=== PATIENT | male | born 1965 | race Caucasian/White ===

== ENCOUNTER 2025-02-04 23:59 | Inpatient (IN) | payer BC, SELFPAY ==
[2025-02-04] VITALS (9 sets, daily range): BP systolic 152–202; BP diastolic 94–141; BMI 29.1
--- NOTE | 2025-02-04 20:54 | ED.GENMED ---
History of Present Illness
<Donnie Merritt PA-C - Last Filed: 02/04/25 23:45>
General
Chief Complaint: Blood Pressure Problem
Source: patient and spouse
Time Seen by Provider: 02/04/25 20:34
History of Present Illness
History of Present Illness:
59-year-old male with no significant past medical history presents to the emergency department for evaluation after check his blood pressure at home earlier today and found it to be persistently elevated with systolics greater than 180 with multiple
readings over 200. When asked why patient was checking his blood pressure he states that he vomited this morning, has been feeling very sluggish, anxious and tremulous. Patient does note that he drinks at least 2-3 drinks per night, last drink was
2 days ago, no known history of alcohol withdrawal. He denies any known history of hypertension. Denies any chest pain, shortness of breath, abdominal pain, urinary symptoms or bowel changes. Denies any concomitant substance use. No fevers or
recent illnesses.
Past History
<Donnie Merritt PA-C - Last Filed: 02/04/25 23:45>
Past History
ED Past Medical History: None
ED Past Surgical History: Orthopedic
Social History
Tobacco: Non-smoker
Alcohol: Daily
Drug: None
Personal:
Living: with family
Employment: Employed
Review of Systems
<Donnie Merritt PA-C - Last Filed: 02/04/25 23:45>
Review of Systems
All Other Systems: ROS reviewed and negative except as documented in HPI and ROS
Phy Exam
<Donnie Merritt PA-C - Last Filed: 02/04/25 23:45>
Physical Exam
Physical Exam:
GENERAL: Alert , very anxious in appearance, fidgeting, tremulous which worsens with arms extended
HEAD: Normocephalic atraumatic
EYE: pupils equal and reactive, pupils 3 mm bilateral, EOMI
NECK: Supple
ENT: o/p clr, mildly dry mucous membranes
CARDIAC: Tachycardic rate and rhythm, no murmur
LUNGS: Clear breath sounds bilaterally, no acute respiratory distress, no wheezes/rales/rhonchi
ABDOMEN: Soft, without focal tenderness, no r/g, no cvat
NEUROLOGICAL: Alert and oriented x 3
SKIN: Warm and dry, skin intact.
MUSCULOSKELETAL: No edema, well perfused.
PSYCH: Normal and appropriate interaction.
Scores
<Donnie Merritt PA-C - Last Filed: 02/04/25 23:45>
Heart Failure Risk
Heart Failure Risk Score: Not Applicable
Heart Score for Chest Pain Patients
STEMI patient?: Not applicable
Withdrawal Assessment of Alcohol
Withdrawal Assessment Completed?: Yes
Nausea and Vomiting: Intermittent nausea with dry heaves
Tactile Disturbances: Mild itching, pins and needles, burning or numbness
Tremor: Moderate, with patient's arms extended
Auditory Disturbances: Not present
Paroxysmal Sweats: Beads of sweat obvious on forehead
Visual Disturbances: Not present
Anxiety: Moderately anxious, or guarded, so anxiety is inferred
Headache, Fullness in Head: Mild
Agitation: Moderately fidgety and restless
Orientation and clouding of sensorium: Oriented and can do serial additions
Total CIWA Score: 24
Alcohol Withdrawal Medication Recommendation: Equal to MSAS >11. Lorazepam 2-4mg IV NOW and re-assess q1hr
<Kain Gordon MD - Last Filed: 02/04/25 22:40>
Withdrawal Assessment of Alcohol
Total CIWA Score: 24
Alcohol Withdrawal Medication Recommendation: Equal to MSAS >11. Lorazepam 2-4mg IV NOW and re-assess q1hr
Course
<Donnie Merritt PA-C - Last Filed: 02/04/25 23:45>
Orders/Labs/Results
Orders:
Orders
02/04/25 20:22
Electrocardiogram (*1) Urgent
Reason for Study: Chest Pain
EKG- Treatment ONCE
02/04/25 20:53
0.9% Sodium Chloride 1000 ml [Nss] 1,000 ml IV BOLUS
Lorazepam [Ativan] 2 mg IV NOW STA
02/04/25 21:11
Alcohol Urgent
Complete Blood Count/With Diff Urgent
Comprehensive Metabolic Panel Urgent
Magnesium Urgent
Troponin I Urgent
02/04/25 21:57
0.9% Sodium Chloride 1000 ml [Nss] 1,000 ml IV BOLUS
02/04/25 23:00
FOLic ACID [Folvite] 1 mg 0.9% Sodium Chloride 50 ml [Nss] 50 ml IV Q24H
02/04/25 23:19
Urinalysis Reflex To Culture Urgent
Date Specimen was Collected: 02/04/25
Time Specimen was Collected: 23:17
02/05/25 00:00
Thiamine Injection 500 mg 0.9% Sodium Chloride 250 ml [Nss] 250 ml IV Q8
Abnormal Lab Results
02/04/25
21:11
MCV 98.1 H fL
(80.0-94.0)
MCH 34.4 H pg
(27.0-31.0)
RDW 15.4 H %
(11.5-14.5)
Plt Count 87 L 10^3/uL
(130-400)
MPV 10.6 H fL
(7.4-10.4)
Abs Immat Gran (auto) 0.1 H 10^3/uL
(0-0.05)
Absolute Neuts (auto) 6.6 H 10^3/uL
(1.4-6.5)
Absolute Lymphs (auto) 0.9 L 10^3/uL
(1.2-3.4)
Absolute Monos (auto) 0.8 H 10^3/uL
(0.1-0.6)
Immature Gran % 0.6 H %
(0-0.5)
Neutrophils % 77.9 H %
(42.2-75.2)
Lymphocytes % 11.1 L %
(20.5-51.1)
Monocytes % 9.8 H %
(1.7-9.3)
Chloride 97 L mmol/L
(98-107)
Carbon Dioxide 9 L* mmol/L
(22-30)
Glucose 189 H mg/dl
(70-99)
Total Bilirubin 2.7 H mg/dl
(0.2-1.3)
AST 139 H U/L
(17-59)
ALT 100 H U/L
(0-50)
Total Protein 8.4 H g/dl
(6.3-8.2)
Albumin 5.2 H g/dl
(3.5-5.0)
02/04/25 21:11
02/04/25 21:11
Vital Signs
Initial and Last Documented VS:
Initial Vital Signs
Temp Pulse Resp BP Pulse Ox
98.3 F 124 20 200/141 99
02/04/25 20:23 02/04/25 20:23 02/04/25 20:23 02/04/25 20:23 02/04/25 20:23
Last Documented Vital Signs
Temp Pulse Resp BP Pulse Ox
98.3 F 113 20 152/100 96
02/04/25 20:23 02/04/25 22:45 02/04/25 22:45 02/04/25 22:30 02/04/25 20:45
Labor Contractor consulted with Physician
Labor Contractor consulted with physician?: Yes
Name of Physician Consulted: Heidi
<Kain Gordon MD - Last Filed: 02/04/25 22:40>
Orders/Labs/Results
Orders:
Orders
02/04/25 20:22
Electrocardiogram (*1) Urgent
Reason for Study: Chest Pain
EKG- Treatment ONCE
02/04/25 20:53
0.9% Sodium Chloride 1000 ml [Nss] 1,000 ml IV BOLUS
Lorazepam [Ativan] 2 mg IV NOW STA
02/04/25 21:11
Alcohol Urgent
Complete Blood Count/With Diff Urgent
Comprehensive Metabolic Panel Urgent
Magnesium Urgent
Troponin I Urgent
02/04/25 21:57
0.9% Sodium Chloride 1000 ml [Nss] 1,000 ml IV BOLUS
02/04/25 23:00
FOLic ACID [Folvite] 1 mg 0.9% Sodium Chloride 50 ml [Nss] 50 ml IV Q24H
02/04/25 23:19
Urinalysis Reflex To Culture Urgent
Date Specimen was Collected: 02/04/25
Time Specimen was Collected: 23:17
02/05/25 00:00
Thiamine Injection 500 mg 0.9% Sodium Chloride 250 ml [Nss] 250 ml IV Q8
Abnormal Lab Results
02/04/25
21:11
MCV 98.1 H fL
(80.0-94.0)
MCH 34.4 H pg
(27.0-31.0)
RDW 15.4 H %
(11.5-14.5)
Plt Count 87 L 10^3/uL
(130-400)
MPV 10.6 H fL
(7.4-10.4)
Abs Immat Gran (auto) 0.1 H 10^3/uL
(0-0.05)
Absolute Neuts (auto) 6.6 H 10^3/uL
(1.4-6.5)
Absolute Lymphs (auto) 0.9 L 10^3/uL
(1.2-3.4)
Absolute Monos (auto) 0.8 H 10^3/uL
(0.1-0.6)
Immature Gran % 0.6 H %
(0-0.5)
Neutrophils % 77.9 H %
(42.2-75.2)
Lymphocytes % 11.1 L %
(20.5-51.1)
Monocytes % 9.8 H %
(1.7-9.3)
Chloride 97 L mmol/L
(98-107)
Carbon Dioxide 9 L* mmol/L
(22-30)
Glucose 189 H mg/dl
(70-99)
Total Bilirubin 2.7 H mg/dl
(0.2-1.3)
AST 139 H U/L
(17-59)
ALT 100 H U/L
(0-50)
Total Protein 8.4 H g/dl
(6.3-8.2)
Albumin 5.2 H g/dl
(3.5-5.0)
02/04/25 21:11
02/04/25 21:11
Vital Signs
Initial and Last Documented VS:
Initial Vital Signs
Temp Pulse Resp BP Pulse Ox
98.3 F 124 20 200/141 99
02/04/25 20:23 02/04/25 20:23 02/04/25 20:23 02/04/25 20:23 02/04/25 20:23
Last Documented Vital Signs
Temp Pulse Resp BP Pulse Ox
98.3 F 113 20 152/100 96
02/04/25 20:23 02/04/25 22:45 02/04/25 22:45 02/04/25 22:30 02/04/25 20:45
<Donnie Merritt PA-C - Last Filed: 02/04/25 23:45>
MDM/Problems Addressed
Differential Diagnosis Includes:
Acute alcohol withdrawal, hypertensive urgency/emergency, less concern for an acute infectious etiology
MDM/Problems Addressed:
59-year-old male presenting to the emergency department for evaluation after finding his blood pressure to be significantly elevated at home, had been feeling unwell for approximately 12 hours. Patient arrives to the ER here significantly
hypertensive, tachycardic, tremulous. Patient's MSAS score is well above 11. Considerable concern for acute alcohol withdrawal. Also considering hypertensive urgency/emergency. Will obtain labs including alcohol level. 2 mg of Ativan ordered
as well as IV fluids. Planning for admission.
Chronic conditions affecting care: Psychiatric illness (Daily alcohol use)
<MARINE Huang Last Filed: 02/04/25 23:45>
*Pulse Oximetry
Patient hypoxic: no
*EKG
Heart Rate: 114
Rate: tachycardiac
Rhythm: sinus
Ischemia: no ischemia
*Play Back Operator Interpretation
Rate: tachycardiac
Rhythm: sinus
*Critical Care Note
Total Time (30-74mins, 75-104mins- exclusive of procedures): 30
comment:
Critical care statement: A total of 30 minutes of critical care time was provided for this patient. This includes management of unstable vital signs, evaluation of the patient at bedside, reviewing the patient's pertinent medical records, discussion
with consultants, review of old EKGs and review of pertinent medical records. This time with separate from time utilized to perform the aforementioned documented procedures
<MARINE Huang Last Filed: 02/04/25 23:45>
Patient Management
Discussion with other providers: Hospitalist
Escalation/DeEscalation of care consider admission/obs:
Patient's labs noted for a bicarb of 9. Suspect alcoholic ketoacidosis. Liver function tests elevated which likely correlates with alcohol history. Patient states his last drink was 2 days ago but alcohol level remains above 0 which could signify
patient drinking more than what he is initially bleeding on. Blood pressure improved following Ativan. Remains tachycardic. Will plan for admission for continued close monitoring of acute alcohol withdrawal. Hospitalist team aware.
ED Attending Note
<Donnie Merritt PA-C - Last Filed: 02/04/25 23:45>
-
Portions of this chart may have been created with voice recognition software.� Occasional wrong word or��sound alike� substitutions may have occurred due to the inherent limitations of voice recognition software.
<Kain Gordon MD - Last Filed: 02/04/25 22:40>
ED Attending Note
Patient seen and examined by attending physician: Yes
ED Attending Note:
I have seen and evaluated the patient with a [id number] encounter. I have spoken to the advance practicer provider and involved in the medical history, the physical exam, medical decision making.
Evaluation and management service: agree unless noted differently below.
Results interpretation: agree unless noted differently below.
Focused HPI: 59-year-old male with history as noted presents to the ER for evaluation of hypertension, tremors, nausea in setting of recent discontinuation of alcohol. Patient says that he drinks about 5 or 6 days a week usually about 2 or 3 drinks
per evening. He has been drinking this much for well over a year. He says that 2 days ago he stopped drinking and yesterday started with tremors, nausea, vomiting. He has a headache. He feels weak and shaky. He says that he checked his blood
pressure today and it was extremely high. Came to the ER for assessment. Denies any drug use.
Physical exam: Hypertensive, tachycardic. Resting tremor. Skin moist. Regular rhythm on cardiac auscultation. Lungs clear. Abdomen soft. Somewhat dry mucous membranes.
Medical Decision Makin-year-old male presents with alcohol withdrawal after stopping alcohol use 2 days ago. His labs did show metabolic acidosis suspect alcoholic ketoacidosis. Treat with Ativan, thiamine, folate, fluids. Admit to
hospitalist for continued management.
Discharge Plan
Departure
Patient Disposition: Admit
Date of Disposition: 02/04/25
Time of Disposition: 21:59
Presentation/result/management discussed w/ accepting MD/DO: Hospitalist
Discharge Problem:
Alcohol withdrawal
Interventions
Interventions:
*Risk Screen - Suicide Last Done: 02/04/25 20:23
*Neglect/Abuse Screening Last Done: 02/04/25 20:23
*ED- Fall Risk Assessment Last Done: 02/04/25 20:23
*ED COVID-19 Vaccine History Last Done: 02/04/25 21:08
ED- Cardiac Assessment Last Done: 02/04/25 21:08
ED- Neurological Assessment Last Done: 02/04/25 21:08
ED- Pulmonary Assessment Last Done: 02/04/25 21:08
Discharge Date and Time
Print Language: HUNGARIAN
[2025-02-04] MEDS: ATIVAN 2 MG IV (21:04)
[2025-02-04] MEDS: NSS 1000 IV (21:05)
[2025-02-04 21:26] LABS: Hematocrit 46.2 % (39.0-52.0); Hemoglobin 16.2 g/dL (13.0-18.0); Mean Corp Hgb Conc. 35.1 g/dL (33.0-37.0); Mean Corpuscular Hgb 34.4 pg (27.0-31.0); Mean Corpuscular Volume 98.1 fL (80.0-94.0); Red Blood Cell Count 4.71 10^6/uL (4.70-6.10); Red Cell Dist. Width 15.4 % (11.5-14.5); White Blood Cell Count 8.5 10^3/uL (4.8-10.8)
[2025-02-04 21:27] LABS: % Basophils 0.5 % (0-2); % Eosinophils 0.1 % (0-6); % Immature Granulocytes 0.6 % (0-0.5); % Lymphocytes 11.1 % (20.5-51.1); % Monocytes 9.8 % (1.7-9.3); % Neutrophils 77.9 % (42.2-75.2); Absolute Immature Granulocytes 0.1 10^3/uL (0-0.05); Absolute Lymphocytes 0.9 10^3/uL (1.2-3.4); Absolute Monocytes 0.8 10^3/uL (0.1-0.6); Absolute Neutrophils 6.6 10^3/uL (1.4-6.5); Nucleated Red Blood Cells % 0 % (-)
[2025-02-04 21:40] LABS: Mean Platelet Volume 10.6 fL (7.4-10.4); Platelet Count 87 10^3/uL (130-400)
[2025-02-04 21:49] LABS: ALT (SGPT) 100 U/L (0-50); AST (SGOT) 139 U/L (17-59); Albumin 5.2 g/dl (3.5-5.0); Alcohol 17 mg/dl; Alkaline Phosphatase 84 U/L (38-126); Blood Urea Nitrogen 13 mg/dl (9-20); Calcium 9.4 mg/dl (8.4-10.2); Carbon Dioxide 9 mmol/L (22-30); Chloride 97 mmol/L (98-107); Estimated Creatinine Clearance 85 ml/min; Glucose 189 mg/dl (70-99); Magnesium 1.6 mg/dl (1.6-2.3); Potassium 4.9 mmol/L (3.5-5.1); Sodium 135 mmol/L (135-145); Total Bilirubin 2.7 mg/dl (0.2-1.3); Total Protein 8.4 g/dl (6.3-8.2); eGFR > 60.00
[2025-02-04 21:56] LABS: Troponin I < 0.012 ng/ml
[2025-02-04 23:40] LABS: Urine Albumin 3+ (Neg - Trace); Urine Bilirubin Negative (Negative); Urine Character Clear (Clear); Urine Color Amber; Urine Glucose Negative (Negative); Urine Ketone 3+ (Negative); Urine Leukocyte Negative (Negative); Urine Nitrite Negative (Negative); Urine Occult Blood 4+ (Negative); Urine Specific Gravity 1.025 (<1.030); Urine Urobilinogen Negative (Neg - 1+)
[2025-02-05] VITALS (13 sets, daily range): BP systolic 136–182; BP diastolic 80–122; BMI 28.6
[2025-02-05] MEDS: FOLVITE 50.2 MG IV (00:03)
--- NOTE | 2025-02-05 00:03 | HPS.HSE ---
Family Physician
-
Family Physician: * NONE
Chief Complaint
-
N/V, Tremulous, high BP
History of Present Illness
Patient is a 59y M with no significant PMH who presents to ED complaining of palpitations, hypertension and feeling 'jittery'. Patient states that he has been feeling poorly for the past few days. Today he checked his BP at home and it was
200/140. Patient states that he stopped drinking alcohol 2 days ago. Prior to that he drank 2-5 drinks five days per week on average. He has no prior history of alcohol withdrawal syndromes, etc.
No other recent symptoms of cough, fever, etc.
He has had N/V of non-bloody emesis a few times in the past 2 days. No abdominal pain. Mild headache.
His symptoms have progressed over the past 2 days - prompting him to present to the ED for further evaluation.
Patient has pain in the L ankle (remote injury / surgery) that has become progressively worse over the past year +.
He has been much less active and his alcohol intake has increased in that time period.
notes that he has been sleeping a great deal and generally not feeling well.
Medical History
Past Medical History
Past Medical History: Reports Other
Additional Past Medical History:
DJD
Past Surgical History: Reports Other
Additional Past Surgical History:
Left Ankle Surgery
L Patella Tendon Repair
Social History
Tobacco: Non-smoker
Alcohol: Daily
Drug: None
Personal:
Living: With Family
Family History
Family History: Other (Father: HTN, A-Fib Mother: HTN Sister: HTN)
Allergies / Home Medications
Allergies reflects when Allergies were last updated in [facility].
Home Medications with original date entered in [facility]
Allergy/Medication List:
Allergies
Allergy/AdvReac Type Severity Reaction Status Date / Time
No Known Allergies Allergy Unverified 02/04/25 20:21
Home Medications
glucosamine sulf dipot chlr,msm,chond 550 mg-C 30 mg-faith 1 mg capsule (Glucosamine Chondroitin) 1 cap PO DAILY 02/04/25
Review of Systems
-
History Source: Patient
A 12 point ROS was completed and negative except as noted: Yes
Constitutional: Reports Fatigue; Denies Fever or Chills
EENT: Denies Sore Throat or Runny Nose
Respiratory: Denies Cough or Trouble Breathing
Cardiac: Reports Palpitations; Denies Chest Pain
Abdomen/GI: Reports Nausea, Vomiting and Diarrhea; Denies Abdominal Pain, Bloody Stools or Black Stools
: Denies Dysuria or Frequency
Musculoskeletal: Reports Joint Pain (L ankle pain); Denies Edema
Neurological: Reports Headache; Denies Dizzy
Physical Exam
Vital Signs
Vital Signs
Temp Pulse Resp BP Pulse Ox
98.3 F 113 20 152/100 96
02/04/25 20:23 02/04/25 22:45 02/04/25 22:45 02/04/25 22:30 02/04/25 20:45
Physical Exam
General: Other (59y M flushed appearance and somewhat tremulous.)
HEENT: Other (Dry MM. Neck supple.)
Respiratory: Clear; No Wheezes, Rales or Rhonchi
Cardiac: S1/S2 and Tachycardia; No Murmur
GI: Soft, Non Tender, Non Distended and Normal Bowel Sounds
Musculoskeletal: No Clubbing, No Cyanosis and No Edema
Neuro: AO x 3
Laboratory Results
-
02/04/25 21:11
02/04/25 21:11
Laboratory Results
Total Bilirubin 2.7 mg/dl (0.2-1.3) H 02/04/25 21:11
AST 139 U/L (17-59) H 02/04/25 21:11
ALT 100 U/L (0-50) H 02/04/25 21:11
Alkaline Phosphatase 84 U/L (38-126) 02/04/25 21:11
Troponin I < 0.012 ng/ml 02/04/25 21:11
Impression/Plan
-
A/P: Patient is a 59y M with no significant PMH who presents to ED complaining of hypertension and palpitations.
Acute Alcohol Withdrawal
Anion Gap Metabolic Acidosis secondary to the above
- Admit to IMU for further evaluation and treatment.
- Begin phenobarbital protocol given severity of symptoms.
- EtOH = 17 reportedly 2 days after last alcohol intake.
- Seizure precautions.
- Thiamine / folate / MVI replacement.
- IVF support.
- Supportive care with antiemetics, PRN BZDs, etc.
- Follow electrolytes and replace as needed.
- Follow for improvement in acidosis.
Abnormal LFTs
Thrombocytopenia
- Secondary to alcohol use disorder as noted above.
- Check PT / PTT.
- Abdominal US to evaluate liver morphology.
DJD
- Left ankle pain progressive over the past several years - now fairly severe.
- History of dislocation in youth requiring surgery at that time.
- Pain control.
- Follow-up with Ortho as an outpatient.
DVT Prophylaxis: SCDs
Code Status: Full
[2025-02-05 00:16] LABS: Urine Squamous Cell >30 /LPF (Few)
[2025-02-05] MEDS: THIAMINE INJECTION 255 MG IV ×2 (00:36→12:11)
[2025-02-05] MEDS: NSS 1000 IV (00:37)
[2025-02-05 00:45] LABS: Urine Amorphous Seen; Urine Bacteria Many (Negative); Urine Mucus Many; Urine White Cell Cast 0-2 /LPF
[2025-02-05 00:48] LABS: Urine Red Blood Cell 21-25 /HPF (0-2)
[2025-02-05 06:29] LABS: PT 14.6 Sec (11.4-14.6)
[2025-02-05 06:34] LABS: Hematocrit 39.6 % (39.0-52.0); Hemoglobin 13.7 g/dL (13.0-18.0); Mean Corp Hgb Conc. 34.6 g/dL (33.0-37.0); Mean Corpuscular Hgb 34.1 pg (27.0-31.0); Mean Corpuscular Volume 98.5 fL (80.0-94.0); Mean Platelet Volume 11.5 fL (7.4-10.4); Platelet Count 63 10^3/uL (130-400); Red Blood Cell Count 4.02 10^6/uL (4.70-6.10); Red Cell Dist. Width 15.4 % (11.5-14.5); White Blood Cell Count 7.7 10^3/uL (4.8-10.8)
[2025-02-05 06:58] LABS: ALT (SGPT) 74 U/L (0-50); AST (SGOT) 91 U/L (17-59); Albumin 3.9 g/dl (3.5-5.0); Alkaline Phosphatase 64 U/L (38-126); Blood Urea Nitrogen 11 mg/dl (9-20); Calcium 8.6 mg/dl (8.4-10.2); Carbon Dioxide 14 mmol/L (22-30); Chloride 103 mmol/L (98-107); Direct Bilirubin 0.7 mg/dl (0.0-0.4); Estimated Creatinine Clearance 121 ml/min; Glucose 124 mg/dl (70-99); Magnesium 1.6 mg/dl (1.6-2.3); Phosphorus 1.4 mg/dl (2.5-4.5); Potassium 3.9 mmol/L (3.5-5.1); Sodium 132 mmol/L (135-145); Total Bilirubin 2.9 mg/dl (0.2-1.3); Total Protein 6.5 g/dl (6.3-8.2); eGFR > 60.00
[2025-02-05] MEDS: LR 1000 IV ×2 (08:41→14:21)
[2025-02-05] MEDS: PROTONIX IV 40 MG IV (08:42)
[2025-02-05] MEDS: FLUSH (NSS) 1 FLUSH IV ×2 (08:42→08:44)
[2025-02-05] MEDS: THIAMINE INJECTION 200 MG IV ×2 (08:43→18:29)
[2025-02-05] MEDS: NSS (PRESERVATIVE FREE) 10 ML IV (08:44)
[2025-02-05] MEDS: FOLVITE 1 MG PO (08:45)
[2025-02-05] MEDS: SODIUM BICARBONATE 1300 MG PO ×3 (09:11→20:53)
[2025-02-05] MEDS: MAGNESIUM SULFATE 100 IV (09:11)
[2025-02-05] MEDS: NEUTRA-PHOS POWDER PACKET 250 MG PO ×4 (09:11→20:53)
--- NOTE | 2025-02-05 13:54 | W.PN.UPDATE ---
Update Note
Progress Note Update
Seen and examined independent of pulmonary physician. Nonbillable note.
States of mild tremors. Denies any nausea or vomiting. Denies any hallucination. Auditory or visual. Spouse at bedside and agrees.
General: Watching TV, mild tremors
HEENT: Other (Dry MM. Neck supple.)
Respiratory: Clear; No Wheezes, Rales or Rhonchi
Cardiac: S1/S2 and Tachycardia; No Murmur
GI: Soft, Non Tender, Non Distended and Normal Bowel Sounds
Musculoskeletal: No Clubbing, No Cyanosis and No Edema
Neuro: AO x 3
A/P: Patient is a 59y M with no significant PMH who presents to ED complaining of hypertension and palpitations.
Acute Alcohol Withdrawal
Alcohol abuse
Anion Gap Metabolic Acidosis secondary to the above
- EtOH = 17
- Seizure precautions.
- Thiamine / folate / MVI replacement.
- IVF support.
- Supportive care with antiemetics, PRN BZDs, etc.
- Follow electrolytes and replace as needed.
- Follow for improvement in acidosis.
- Can hold off Phenobarb for now.
- Not interested in going to inpatient detox rehab
Abnormal LFTs
Thrombocytopenia
- Secondary to alcohol use disorder as noted above.
- Check PT / PTT. DF score of 18. [place] alcoholic hepaitis score of 6. NA-MELD 15. Low score on scales indicating not responsive to steroids
- Check hepatitis panel
- Abdominal US Hepatomegaly. Increased heterogeneous hepatic echogenicity which is suspicious for cirrhosis. No abnormal focal hepatic lesion identified sonographically.
- Trend Platelets
Anion Gap Metabolic Acidosis secondary to alcoholic ketoacidosis
-Start p.o. bicarbonate
-IV bicarbonate infusion
Mild hypophosphatemia
-Replete p.o.
-Encourage nutrition
Mild hyponatremia
-trend bmp for now
DJD
- Left ankle pain progressive over the past several years - now fairly severe.
- History of dislocation in youth requiring surgery at that time.
- Pain control.
- Follow-up with Ortho as an outpatient.
DVT Prophylaxis: SCDs
Code Status: Full
Discussed with patient's spouse at bedside in details and answered all her questions to her satisfaction
[2025-02-05] MEDS: SODIUM BICARBONATE 1150 MEQ IV (14:21)
[2025-02-05] MEDS: THIAMINE INJECTION IV ×2 (14:53→19:03)
--- NOTE | 2025-02-05 16:54 | EDRN ---
Patient taken to room 434-1 on monitor with Bicarb drip infusing by blending technician.
[2025-02-05] MEDS: TRANDATE 10 MG IV (17:42)
[2025-02-06] VITALS (8 sets, daily range): BP systolic 140–179; BP diastolic 79–114; PULSE 107; O2SAT 98; BMI 28.6
[2025-02-06] MEDS: THIAMINE INJECTION 200 MG IV ×4 (00:23→23:08)
[2025-02-06] MEDS: TRANDATE 10 MG IV ×3 (05:32→23:33)
[2025-02-06 07:41] LABS: % Basophils 0.8 % (0-2); % Eosinophils 1.3 % (0-6); % Immature Granulocytes 0.8 % (0-0.5); % Lymphocytes 26.8 % (20.5-51.1); % Monocytes 12.6 % (1.7-9.3); % Neutrophils 57.7 % (42.2-75.2); Absolute Eosinophils 0.1 10^3/uL (0-0.7); Absolute Lymphocytes 1.3 10^3/uL (1.2-3.4); Absolute Monocytes 0.6 10^3/uL (0.1-0.6); Absolute Neutrophils 2.8 10^3/uL (1.4-6.5); Hematocrit 38.7 % (39.0-52.0); Mean Corp Hgb Conc. 36.2 g/dL (33.0-37.0); Mean Corpuscular Hgb 34.5 pg (27.0-31.0); Mean Corpuscular Volume 95.3 fL (80.0-94.0); Mean Platelet Volume 12.2 fL (7.4-10.4); Nucleated Red Blood Cells % 0 % (-); Platelet Count 60 10^3/uL (130-400); Red Blood Cell Count 4.06 10^6/uL (4.70-6.10); Red Cell Dist. Width 15.4 % (11.5-14.5); White Blood Cell Count 4.8 10^3/uL (4.8-10.8)
[2025-02-06 07:59] LABS: ALT (SGPT) 75 U/L (0-50); AST (SGOT) 121 U/L (17-59); Albumin 3.8 g/dl (3.5-5.0); Alkaline Phosphatase 63 U/L (38-126); Blood Urea Nitrogen 9 mg/dl (9-20); Calcium 8.9 mg/dl (8.4-10.2); Carbon Dioxide 25 mmol/L (22-30); Chloride 99 mmol/L (98-107); Estimated Creatinine Clearance > 125 ml/min; Glucose 100 mg/dl (70-99); Magnesium 1.7 mg/dl (1.6-2.3); Phosphorus 2.7 mg/dl (2.5-4.5); Potassium 3.2 mmol/L (3.5-5.1); Sodium 136 mmol/L (135-145); Total Bilirubin 3.9 mg/dl (0.2-1.3); Total Protein 6.4 g/dl (6.3-8.2); eGFR > 60.00
[2025-02-06] MEDS: PROTONIX IV 40 MG IV (07:59)
[2025-02-06] MEDS: NSS (PRESERVATIVE FREE) 10 ML IV (07:59)
[2025-02-06] MEDS: FOLVITE 1 MG PO (08:00)
[2025-02-06] MEDS: SODIUM BICARBONATE 1300 MG PO (08:00)
[2025-02-06] MEDS: NEUTRA-PHOS POWDER PACKET 250 MG PO ×2 (08:00→12:22)
[2025-02-06] MEDS: KCL 40 MEQ PO (08:23)
[2025-02-06 08:25] LABS: Hepatitis B Surface Antigen Negative (Negative)
[2025-02-06 08:39] LABS: Hepatitis A IgM Antibody Negative (Negative)
[2025-02-06 08:42] LABS: Hepatitis B Core Ab, Total Negative (Negative); Hepatitis C Antibody Negative (Negative)
--- NOTE | 2025-02-06 11:54 | W.PN.HOSP.TC ---
Today's Communication/Plan
-
start BP meds
MSAS protocol
trend labs
PT eval
[facility] referral
Assessment / Plan
Assessment / Plan
General: comfortable, no severe tremors
HEENT: Other (Dry MM. Neck supple.)
Respiratory: Clear; No Wheezes, Rales or Rhonchi
Cardiac: S1/S2 and Tachycardia; No Murmur
GI: Soft, Non Tender, Non Distended and Normal Bowel Sounds
Musculoskeletal: No Clubbing, No Cyanosis and No Edema
Neuro: AO x 3
A/P: Patient is a 59y M with no significant PMH who presents to ED complaining of hypertension and palpitations.
Acute Alcohol Withdrawal
Alcohol abuse
Anion Gap Metabolic Acidosis secondary to the above
- EtOH = 17 on admisison
- Seizure precautions.
- Thiamine / folate / MVI replacement.
- IVF support can be stopped as tolerating po diet.
- Supportive care with antiemetics, PRN BZDs, etc.
- Follow electrolytes and replace as needed.
- Can hold off Phenobarb for now.
- Not interested in going to inpatient detox rehab.
- CM consult for outpatient resources. [facility] referral.
Abnormal LFTs
Thrombocytopenia
- Secondary to alcohol use disorder as noted above.
- Check PT / PTT. DF score of 18. [place] alcoholic hepaitis score of 6. NA-MELD 15. Low score on scales indicating not responsive to steroids
- Hepatitis panel non reactive (A,B,C)
- Abdominal US Hepatomegaly. Increased heterogeneous hepatic echogenicity which is suspicious for cirrhosis. No abnormal focal hepatic lesion identified sonographically.
- Trend Platelets
- Recommend outpatient hepatology follow up
Primary HTN
-states he was borderline high bp as outpatient
-started on losartan 50mg daily. May need to uptitrate if needed
Anion Gap Metabolic Acidosis secondary to alcoholic ketoacidosis
-resolved. stop bicarb.
Mild hypophosphatemia
-Replete p.o.
-Encourage nutrition
Mild hyponatremia
-trend bmp for now
Hypokalemia
-replete/monitor
DJD
- Left ankle pain progressive over the past several years - now fairly severe.
- History of dislocation in youth requiring surgery at that time.
- Pain control.
- Follow-up with Ortho as an outpatient.
DVT Prophylaxis: SCDs in setting for thrombocytopenia
Code Status: Full
Discussed with patient's spouse at bedside in details and answered all her questions to her satisfaction
Anticipated Discharge: Within 24 hours
Subjective/Interval History
-
Date of Service: February 06, 2025
states feeling better compared to yesterday
some tremors
tolerating diet
Objective Data
-
Labs:
Laboratory Results
02/06/25
07:08
WBC 4.8
Hgb 14.0
Hct 38.7 L
Plt Count 60 L
Sodium 136
Potassium 3.2 L
Chloride 99
Carbon Dioxide 25
BUN 9
Creatinine 0.6 L
Glucose 100 H
Calcium 8.9
Total Bilirubin 3.9 H
AST 121 H
ALT 75 H
Alkaline Phosphatase 63
Vital Signs:
Vital Signs
Temp Pulse Resp BP Pulse Ox
98.2 F 86 18 154/102 95
02/06/25 11:30 02/06/25 11:30 02/06/25 11:30 02/06/25 11:30 02/06/25 11:30
I&O
02/05/25 02/06/25 02/07/25
06:59 06:59 06:59
Intake Total 240 / 240
Output Total 890 / 890
Balance -650 / -650
Data Reviewed
-
Total Time Spent with Patient (in minutes): 55
[2025-02-06] MEDS: COZAAR 50 MG PO (12:21)
--- NOTE | 2025-02-06 13:58 | CM ---
produce manager reviewed patient's chart and met with patient and extended family in room, patient reports that he lives with spouse and 22 y.o in a 2 story home, patient is independent with adl's and ambulation, no dme. Per notes patient order was
placed for alcohol use counseling. Case michaelr reviewed with lorelei and cristiane varela agreeable to a referral to [facility] [place] [place] contacted and they will see patint today.
PCP: Dr. Forde
Pharmacy: [facility]
Plan; Referral sent to [facility] [place].
[2025-02-07 03:57] VITALS: BP 120/72
[2025-02-07 07:30] VITALS: BP 160/103
[2025-02-07 07:39] LABS: % Basophils 1.1 % (0-2); % Eosinophils 2.1 % (0-6); % Immature Granulocytes 1.6 % (0-0.5); % Lymphocytes 22.8 % (20.5-51.1); % Monocytes 6.5 % (1.7-9.3); % Neutrophils 65.9 % (42.2-75.2); Absolute Basophils 0.1 10^3/uL (0-0.2); Absolute Eosinophils 0.1 10^3/uL (0-0.7); Absolute Immature Granulocytes 0.1 10^3/uL (0-0.05); Absolute Lymphocytes 1.3 10^3/uL (1.2-3.4); Absolute Monocytes 0.4 10^3/uL (0.1-0.6); Absolute Neutrophils 3.7 10^3/uL (1.4-6.5); Hematocrit 41.4 % (39.0-52.0); Hemoglobin 14.5 g/dL (13.0-18.0); Mean Corpuscular Hgb 34.5 pg (27.0-31.0); Mean Corpuscular Volume 98.6 fL (80.0-94.0); Mean Platelet Volume 12.1 fL (7.4-10.4); Nucleated Red Blood Cells % 0 % (-); Platelet Count 75 10^3/uL (130-400); Red Cell Dist. Width 15.9 % (11.5-14.5); White Blood Cell Count 5.7 10^3/uL (4.8-10.8)
[2025-02-07] MEDS: COZAAR 50 MG PO (07:40)
[2025-02-07] MEDS: FOLVITE 1 MG PO (07:40)
[2025-02-07] MEDS: PROTONIX IV 40 MG IV (07:41)
[2025-02-07] MEDS: NSS (PRESERVATIVE FREE) 10 ML IV (07:41)
[2025-02-07] MEDS: THIAMINE INJECTION 200 MG IV ×2 (07:41→15:00)
[2025-02-07 08:19] LABS: ALT (SGPT) 244 U/L (0-50); AST (SGOT) 819 U/L (17-59); Albumin 4.1 g/dl (3.5-5.0); Alkaline Phosphatase 65 U/L (38-126); Blood Urea Nitrogen 11 mg/dl (9-20); Calcium 9.2 mg/dl (8.4-10.2); Carbon Dioxide 31 mmol/L (22-30); Chloride 100 mmol/L (98-107); Estimated Creatinine Clearance 121 ml/min; Glucose 105 mg/dl (70-99); HDL Cholesterol 115 mg/dl; LDL Cholesterol, Calculated 112 mg/dl; Magnesium 1.6 mg/dl (1.6-2.3); Phosphorus 3.4 mg/dl (2.5-4.5); Potassium 3.4 mmol/L (3.5-5.1); Sodium 137 mmol/L (135-145); Total Bilirubin 3.7 mg/dl (0.2-1.3); Total Cholesterol 242 mg/dl (50-199); Total Protein 6.9 g/dl (6.3-8.2); Triglyceride 75 mg/dl (10-149); Very Low Density Lipoprotein 15 mg/dl (0-30); eGFR > 60.00
--- NOTE | 2025-02-07 08:33 | PN.CDI ---
CDI
- -
CDI:
Physician Documentation Request
Admit Date: 02/04/25 23:59
Dear Doctor Jaspreet,
Patient admitted for alcohol withdrawal.
ED Physician Documentation: 'Differential Diagnosis Includes:...hypertensive urgency/emergency'
02/06 Hospitalist PN: 'Primary HTN -states he was borderline high bp as outpatient -started on losartan 50mg daily. May need to uptitrate if needed'
Selected Entries
02/04/25
20:23 02/04/25
20:27 02/04/25
20:41
Blood pressure 200/141 186/126 202/114
02/04/25
21:00
Blood pressure 193/119
Please clarify the following:
____ - Hypertensive Urgency was present on admission and is now resolved.
____ - Hypertensive Urgency was present on admission and is still being monitored, evaluated or treated
____ - Hypertensive Urgency was ruled out
____ - Hypertensive Urgency is still a likely, suspected, probable diagnosis
____ - Other
____ - Unable to determine
Hypertensive Urgency - B/P is severely elevated (systolic > or = to 180 or diastolic > or = to 110) but there is no associated organ damage. Symptoms may include: headache, shortness of breath, nosebleeds, severe anxiety. Treatment usually consists
of addition to or adjusting of oral medications and does not generally necessitate hospitalization.
Use of terms such as suspected, likely, concern for, or probable (associated with a specific diagnosis that is being evaluated, monitored, or treated as if it exists) are acceptable and can be coded in the inpatient setting, when documented at the
time of discharge.
Thank you,
Catrina Thompson RN, BSN
CDI Specialist
Available via [facility] text
Please use your independent medical judgment in providing your response.
--- NOTE | 2025-02-07 08:55 | PN.CDI ---
CDI
- -
CDI:
Physician Documentation Request
Admit Date: 02/04/25 23:59
Dear Doctor Jaspreet,
Patient admitted for alcohol withdrawal.
ED Physician Documentation: 'Patient states his last drink was 2 days ago but alcohol level remains above 0 which could signify patient drinking more than what he is initially bleeding on...Patient says that he drinks about 5 or 6 days a week
usually about 2 or 3 drinks per evening. He has been drinking this much for well over a year.'
02/06 Hospitalist PN: 'Acute Alcohol Withdrawal, Alcohol abuse'
If possible, please provide further specificity as outlined below:
Alcohol dependence
Alcohol abuse
Other
Use of terms such as suspected, likely, concern for, or probable (associated with a specific diagnosis that is being evaluated, monitored, or treated as if it exists) are acceptable and can be coded in the inpatient setting, when documented at the
time of discharge.
Thank you,
Catrina Thompson RN, BSN
CDI Specialist
Available via [place] text
Please use your independent medical judgment in providing your response.
[2025-02-07] MEDS: KCL 20 MEQ PO (08:58)
--- NOTE | 2025-02-07 11:25 | CM ---
manager spanish reviewed patient's chart and spoke with patient and referral was sent to [facility] and they evaluated patient yesterday offered inpatient and outpatient along with partial programs however patient declined, information in case patient
wants to reach out in the future provided to patient by [facility]. Patient's spouse was given information on [employer]-An[employer] Meetings, and she attended a meeting yesterday also information on [facility] a quaker based 12 step program was also
provided to patient's spouse.
Plan; Home when stable, patient has declined treatment options from [facility].
[2025-02-07 11:30] VITALS: BP 150/101
--- NOTE | 2025-02-07 11:40 | W.PN.HOSP.TC ---
Today's Communication/Plan
-
Trend LFTs
Replete KCl
GI input
Assessment / Plan
Assessment / Plan
General: comfortable, no severe tremors
HEENT: Other (Dry MM. Neck supple.)
Respiratory: Clear; No Wheezes, Rales or Rhonchi
Cardiac: S1/S2 and Tachycardia; No Murmur
GI: Soft, Non Tender, Non Distended and Normal Bowel Sounds
Musculoskeletal: No Clubbing, No Cyanosis and No Edema
Neuro: AO x 3
A/P: Patient is a 59y M with no significant PMH who presents to ED complaining of hypertension and palpitations.
Acute Alcohol Withdrawal
Alcohol abuse
Anion Gap Metabolic Acidosis secondary to the above
- EtOH = 17 on admission
- Seizure precautions.
- Thiamine / folate / MVI replacement.
- IVF support can be stopped as tolerating po diet.
- Supportive care with antiemetics, PRN BZDs, etc.
- Follow electrolytes and replace as needed.
- Can hold off Phenobarb for now.
- Not interested in going to inpatient detox rehab.
- CM consult for outpatient resources. [facility] referral.
- Overall withdrawal symptoms significantly improved
Abnormal LFTs
Thrombocytopenia
- Secondary to alcohol use disorder as noted above.
- Check PT / PTT. DF score of 18. [place] alcoholic hepaitis score of 6. NA-MELD 15. Low score on scales indicating not responsive to steroids
- Significant bump in AST/ALT compared to yesterday. Pattern seems consistent with alcohol induced liver injury however unclear if secondary cause. Only new medication being losartan this admission.
- Hepatitis panel non reactive (A,B,C)
- Abdominal US Hepatomegaly. Increased heterogeneous hepatic echogenicity which is suspicious for cirrhosis. No abnormal focal hepatic lesion identified sonographically.
- Trend Platelets. Platelet uptrending
- Check GGT and direct bili. Triglyceride not significantly elevated. Albumin at 4.
- will ask GI for input
Primary HTN elevated on admission likely due to severe alcohol withdrawal
Hypertension urgency
-states he was borderline high bp as outpatient
-started on losartan 50mg daily. May need to uptitrate if needed
Anion Gap Metabolic Acidosis secondary to alcoholic ketoacidosis
-resolved. stop bicarb.
Mild hypophosphatemia
-resolved.
-Encourage nutrition
Mild hyponatremia
-trend bmp for now
Hypokalemia
-replete/monitor
DJD
- Left ankle pain progressive over the past several years - now fairly severe.
- History of dislocation in youth requiring surgery at that time.
- Pain control.
- Follow-up with Ortho as an outpatient.
DVT Prophylaxis: SCDs in setting for thrombocytopenia
Code Status: Full
PT eval-as for alcohol withdrawal and with low platelets.
Anticipated Discharge: 24 - 48 hours
Subjective/Interval History
-
Date of Service: February 07, 2025
Remains with mild tremors but improved since admission
tolerating diet
states of 2 loose bm yesterday
no nausea or vomiting
Objective Data
-
Labs:
Laboratory Results
02/07/25
07:20
WBC 5.7
Hgb 14.5
Hct 41.4
Plt Count 75 L D
Sodium 137
Potassium 3.4 L
Chloride 100
Carbon Dioxide 31 H
BUN 11
Creatinine 0.7
Glucose 105 H
Calcium 9.2
Total Bilirubin 3.7 H
AST 819 H*
ALT 244 H
Alkaline Phosphatase 65
Vital Signs:
Vital Signs
Temp Pulse Resp BP Pulse Ox
97.8 F 80 20 150/101 97
02/07/25 11:30 02/07/25 11:30 02/07/25 11:30 02/07/25 11:30 02/07/25 11:30
I&O
02/06/25 02/07/25 02/08/25
06:59 06:59 06:59
Intake Total 240 / 240
Output Total 890 / 890 200 / 200
Balance -650 / -650 -200 / -200
Data Reviewed
-
Total Time Spent with Patient (in minutes): 55
[2025-02-07 12:34] LABS: GGTP 362 U/L (15-73)
--- NOTE | 2025-02-07 14:11 | CON.GI ---
Consultation
-
Date/Time Consultation Requested: 02/07/25 1200
Date/Time Consultation Performed: 02/07/25 1300
Requesting Provider: Dr. Vogel
Performing Provider: Dr. Goddard/BANDAR Hernandez
Reason for Consultation: elevated LFTs
Medical History
Chief Complaint / HPI
Chief Complaint: ETHO withdrawal
History of Present Illness:
59-year-old male with past medical history of hypertension not on any medication, left ankle osteoarthritis/degenerative joint disease, intermittent solid food dysphagia although has not occurred in some time, alcohol abuse presents to the emergency
room with tremors, nausea/vomiting, elevated blood pressure and a 'fullness in his head'. Asked to evaluate for elevated liver function test. The patient has a history of alcohol abuse drinking a 'handle' of vodka and a 'handle of gin' every 7 to
10 days for the past 8 years. He decided that he no longer wanted to drink and quit cold turkey off Wednesday. By Wednesday he was having tremors, nausea and vomiting noticed that his blood pressure was elevating and started having a fullness sensation
in his neck and head. Proceeded to the emergency room for further evaluation. He denies any prior history of elevated liver function test however he does not routinely follow-up with a PCP. He has no family history of liver disease. He does not
smoke. He does not take any Tylenol products. He uses Advil for any kind of muscle aches or pains. He uses glucosamine and chondroitin as well as turmeric daily. He denies any tattoos, piercings or IV drug abuse. Denies any history of
hepatitis. Routine acute viral hepatitis panel here is negative. Patient's daughter did bring him raw sushi last night from local restaurant. Denies any muscle aches or pains. Denies any lymphadenopathy, sore throat, fever or headache at the
current time. No sick contacts. Works as a business support manager. Patient has had a slow progressive elevation of bilirubin 2.7-2.9-3.9 today is down to 3.7, direct bilirubin 1.0. AST 139 down to 91 up to 121 and now up to 819. ALT 100 down to 74,
75 now up to 244. Alk phos 84-64-63 now 65. Platelets have been low but stable 87-63-60-75. INR 1.1. Afebrile without any leukocytosis or hypotension. Patient did come in significantly hypertensive however did not have any severe drop from
elevation.
Past Medical History
Past Medical History: HTN and Other (DJD, osteoarthritis, alcohol abuse)
Past Surgical History: Other (Left ankle surgery, left patella tendon repair)
Social History
Tobacco: Non-Smoker
Alcohol: Chronic Alcoholic (Almost half gallon of vodka every 7-10 days as well as almost half a gallon of gin every 7-10 days x 8 years)
Drug: None
Personal:
Living: With Family
Employment: Employed
Family History
Family History: Other (No family history gastrointestinal malignancy or IBD)
Allergies / Home Medications
Allergy/AdvReac Type Severity Reaction Status Date / Time
No Known Allergies Allergy Unverified 02/04/25 20:21
�Medication �Instructions �Recorded
glucosamine sulf dipot 1 cap PO DAILY 02/05/25
chlr,msm,chond 550 mg-C 30 mg-faith
1 mg capsule (Glucosamine
Chondroitin)
turmeric 400 mg capsule 1 mg PO DAILY 02/05/25
Review of Systems
-
All other systems: A 12 pt ROS was Negative except as stated above in HPI
Vital Signs
Temp Pulse Resp BP Pulse Ox
97.8 F 80 20 150/101 97
02/07/25 11:30 02/07/25 11:30 02/07/25 11:30 02/07/25 11:30 02/07/25 11:30
Physical Exam
Exam
General: No Apparent Distress
HEENT: Anicteric
Respiratory: Clear
Cardiac: Regular Rhythm
GI: Soft, Non Tender, Non Distended and Normal Bowel Sounds
Musculoskeletal: No Edema
Skin: Warm and Dry
Neuro: AO x 3
Psych: Calm
Results
WBC 5.7 10^3/uL (4.8-10.8) 02/07/25 07:20
Hgb 14.5 g/dL (13.0-18.0) 02/07/25 07:20
Hct 41.4 % (39.0-52.0) 02/07/25 07:20
MCV 98.6 fL (80.0-94.0) H 02/07/25 07:20
Plt Count 75 10^3/uL (130-400) L D 02/07/25 07:20
Absolute Neuts (auto) 3.7 10^3/uL (1.4-6.5) 02/07/25 07:20
PT 14.6 Sec (11.4-14.6) 02/05/25 05:35
INR 1.10 02/05/25 05:35
APTT 26.0 Sec (23.4-35.0) 02/05/25 05:35
Sodium 137 mmol/L (135-145) 02/07/25 07:20
Potassium 3.4 mmol/L (3.5-5.1) L 02/07/25 07:20
Chloride 100 mmol/L (98-107) 02/07/25 07:20
Carbon Dioxide 31 mmol/L (22-30) H 02/07/25 07:20
BUN 11 mg/dl (9-20) 02/07/25 07:20
Creatinine 0.7 mg/dL (0.7-1.3) 02/07/25 07:20
Calcium 9.2 mg/dl (8.4-10.2) 02/07/25 07:20
Total Bilirubin 3.7 mg/dl (0.2-1.3) H 02/07/25 07:20
AST 819 U/L (17-59) H* 02/07/25 07:20
ALT 244 U/L (0-50) H 02/07/25 07:20
Alkaline Phosphatase 65 U/L (38-126) 02/07/25 07:20
Hepatitis A IgM Ab Negative (Negative) 02/06/25 07:08
Hep B Core Total Ab Negative (Negative) 02/06/25 07:08
Hepatitis C Antibody Negative (Negative) 02/06/25 07:08
Diagnostic Image Results:
Ultrasound the abdomen:
IMPRESSION:
1. Hepatomegaly. Increased heterogeneous hepatic echogenicity which is suspicious for cirrhosis. No abnormal focal hepatic lesion identified sonographically.
2. Biliary sludge within the gallbladder. No findings suspicious for acute cholecystitis.
Prior GI Procedures:
EGD: Patient had approximately 15 years ago for dysphagia. States he was 'stretched'.
Colonoscopy: Never had
Assessment / Plan
-
59-year-old male with past medical history of hypertension not on any medication, left ankle osteoarthritis/degenerative joint disease, intermittent solid food dysphagia although has not occurred in some time, alcohol abuse presents to the emergency
room with tremors, nausea/vomiting, elevated blood pressure and a 'fullness in his head'. Asked to evaluate for elevated liver function test. The patient has a history of alcohol abuse drinking a 'handle' of vodka and a 'handle of gin' every 7 to
10 days for the past 8 years. He decided that he no longer wanted to drink and quit cold turkey off Wednesday. By Wednesday he was having tremors, nausea and vomiting noticed that his blood pressure was elevating and started having a fullness sensation
in his neck and head. Proceeded to the emergency room for further evaluation.
Maddrey DF = 3.2
MELD 3.0 =12
T Bili 2.7-> 2.9-> 3.9-> 3.7
D Bili - 0.7 - 1.0
AST 139-> 91-> 121-> 819
ALT 100-> 74 -> 75 -> 244
Alk P 84 -> 64 -> 63 -> 65
PlT 87 -> 63-> 60 -> 75
INR --> 1.10 --> 1.02
Impression:
ETOH Abuse
Elevated LFTs
--acute increase in AST
Thrombocytopenia
--questionable cirrhosis vs myelosuppression from ETOH
--hepatomegaly on imaging, smooth capsule. Spleen normal in size
Plan:
-No role for steroids for alcoholic hepatitis as DF <32
-Trend LFTs
-Will repeat LFTs, CBC and check CK
-ETOH cessation strongly advised
-CBC, LFTs INR daily
-Will need outpatient repeat imaging to evaluate liver
-Avoid hepatotoxins, discussed no raw seafood.
-If with signs of decompensation or worsening LFTs will broaden work up
-
-
Thank you for consultation and allowing me to participate in the patient's care. Please call the airport operations supervisor GI physician during the after hours with any questions or concerns.
[2025-02-07 14:35] LABS: INR 1.02; PT 13.9 Sec (11.4-14.6)
--- NOTE | 2025-02-07 14:37 | W.PN.UPDATE ---
Update Note
Progress Note Update
Patient seen and examined independently of BUSINESS ANALYST [employer]. I agree with her note with my additions below
Jeff is a 59-year-old heavy drinker for at least the past 8 years who goes through 2 handles in a week to help him sleep who has had withdrawal in the past who came in after stopping alcohol because he felt like it was interfering with his family
life. Couple days after stopping became very tremulous nausea vomiting and came to the emergency room. He did not have a seizure and has never had 1. He has been very tremulous but it is improving. GI was called because of his liver enzyme
pattern showing a dramatic change today.
On admission total bilirubin 2.7 and today 3.7, AST on admission 139 today 819 dramatically different from yesterday's 121. ALT on admission 100, today 244. INR normal at 1.02, platelets 75, hemoglobin 14.5, CK pending. Repeat LFTs also pending.
Renal function has been normal with a creatinine of 0.7
He denies any abdominal pain nausea or vomiting since admission. His ultrasound on 02/05/2025 shows hepatomegaly with increased echogenicity. Smooth capsular contour. No hepatoma. No intrahepatic ductal dilatation. Gallbladder is distended with
fluid but no calculi or wall thickening. Some sludge in the gallbladder. CBD is normal at 4 mm. Visible pancreas is normal. Spleen is normal.
Patient does not see doctors and has not had any blood work other than blood work he had at work which included a lipid panel and he states his LDL and HDL were both elevated. He is unclear about his triglycerides.
He has no known family history of liver disease. No prior hepatitis. Denies ever being jaundiced or having ascites. No lower extremity edema. Acute hepatitis panel was negative including hep AB and C
# Alcoholic hepatitis
-- DF is less than 32 send no indication for steroids
-- Good diet is the most important treatment with good protein as well as alcohol cessation
-- Patient will need to follow-up with us as an outpatient for cirrhosis testing including FibroScan, potential MR elastography
-- Patient is not going to inpatient rehab but is discussing outpatient options
-- I discussed with him he needs to establish a PCP and discuss options to help him sleep since he was medicating himself with alcohol in order to get to sleep
-- Agree with thiamine and folate
# Hepatocellular injury, majority AST
-- It is uncommon to see AST this high and just alcoholic hepatitis. Possibly some relationship to his tremors over the past couple of days. No seizure. CK was within normal range. Kidney functions normal.
-- Is trending in the right direction and his INR is normal
-- Would just check it in the morning and if continues to be stable or drop he would be okay for discharge with follow-up blood work with repeat CMP, CBC, INR in 1 to 2 weeks with follow-up with us in the office
-- Patient has no abdominal pain
[2025-02-07 14:43] LABS: ALT (SGPT) 228 U/L (0-50); AST (SGOT) 650 U/L (17-59); Albumin 4.1 g/dl (3.5-5.0); Alkaline Phosphatase 84 U/L (38-126); Creatine Phosphokinase 102 U/L (55-170); Direct Bilirubin 0.9 mg/dl (0.0-0.4); Total Bilirubin 3.3 mg/dl (0.2-1.3); Total Protein 7.1 g/dl (6.3-8.2)
[2025-02-07 15:39] VITALS: BP 161/111
[2025-02-07 19:52] VITALS: BP 146/100
[2025-02-07 22:52] VITALS: BP 133/86
[2025-02-08 03:36] VITALS: BP 158/107
[2025-02-08 06:00] VITALS: BMI 28.2
[2025-02-08 07:30] VITALS: BP 147/104
[2025-02-08] MEDS: COZAAR 50 MG PO (08:14)
[2025-02-08] MEDS: PROTONIX 40 MG PO (08:15)
[2025-02-08] MEDS: VITAMIN B1 100 MG PO (08:15)
[2025-02-08] MEDS: FOLVITE 1 MG PO (08:16)
[2025-02-08 08:28] LABS: % Basophils 1.6 % (0-2); % Eosinophils 3.9 % (0-6); % Immature Granulocytes 2.5 % (0-0.5); % Lymphocytes 25.7 % (20.5-51.1); % Monocytes 14.1 % (1.7-9.3); % Neutrophils 52.2 % (42.2-75.2); Absolute Basophils 0.1 10^3/uL (0-0.2); Absolute Eosinophils 0.2 10^3/uL (0-0.7); Absolute Immature Granulocytes 0.1 10^3/uL (0-0.05); Absolute Lymphocytes 1.3 10^3/uL (1.2-3.4); Absolute Monocytes 0.7 10^3/uL (0.1-0.6); Absolute Neutrophils 2.7 10^3/uL (1.4-6.5); Hematocrit 39.9 % (39.0-52.0); Hemoglobin 13.9 g/dL (13.0-18.0); Mean Corp Hgb Conc. 34.8 g/dL (33.0-37.0); Mean Corpuscular Hgb 34.8 pg (27.0-31.0); Mean Corpuscular Volume 99.8 fL (80.0-94.0); Mean Platelet Volume 11.7 fL (7.4-10.4); Nucleated Red Blood Cells % 0 % (-); Platelet Count 104 10^3/uL (130-400); Red Cell Dist. Width 16.1 % (11.5-14.5); White Blood Cell Count 5.1 10^3/uL (4.8-10.8)
[2025-02-08 08:49] LABS: ALT (SGPT) 218 U/L (0-50); AST (SGOT) 409 U/L (17-59); Albumin 3.7 g/dl (3.5-5.0); Alkaline Phosphatase 71 U/L (38-126); Blood Urea Nitrogen 10 mg/dl (9-20); Carbon Dioxide 26 mmol/L (22-30); Chloride 104 mmol/L (98-107); Direct Bilirubin 0.6 mg/dl (0.0-0.4); Estimated Creatinine Clearance 121 ml/min; Glucose 111 mg/dl (70-99); Magnesium 1.6 mg/dl (1.6-2.3); Phosphorus 3.5 mg/dl (2.5-4.5); Potassium 3.5 mmol/L (3.5-5.1); Sodium 140 mmol/L (135-145); Total Bilirubin 2.1 mg/dl (0.2-1.3); Total Protein 6.4 g/dl (6.3-8.2); eGFR > 60.00
--- NOTE | 2025-02-08 09:01 | W.PN.GI.CBS2 ---
Addendum entered and electronically signed by Ambar Goddard DO 02/08/25 09:08:
appt 03/14 at 11:30 with LUIS Ni
Original Note:
Today's Communication / Plan
-
Okay for discharge with outpatient follow-up and labs
Assessment / Plan
-
59-year-old male with past medical history of hypertension not on any medication, left ankle osteoarthritis/degenerative joint disease, intermittent solid food dysphagia although has not occurred in some time, alcohol abuse presents to the emergency
room with tremors, nausea/vomiting, elevated blood pressure and a 'fullness in his head'. Asked to evaluate for elevated liver function test. The patient has a history of alcohol abuse drinking a 'handle' of vodka and a 'handle of gin' every 7 to
10 days for the past 8 years. He decided that he no longer wanted to drink and quit cold turkey off Wednesday. By Wednesday he was having tremors, nausea and vomiting noticed that his blood pressure was elevating and started having a fullness sensation
in his neck and head. Proceeded to the emergency room for further evaluation.
Maddrey DF = 3.2
MELD 3.0 =12
T Bili 2.7-> 2.9-> 3.9-> 3.7 --> 2.1
D Bili - 0.7 - 1.0
AST 139-> 91-> 121-> 819 --> 409
ALT 100-> 74 -> 75 -> 244 --> 218
Alk P 84 -> 64 -> 63 -> 65
PlT 87 -> 63-> 60 -> 75
INR --> 1.10 --> 1.02
CK normal
Impression:
ETOH Abuse
Elevated LFTs
--acute increase in AST
Thrombocytopenia
--questionable cirrhosis vs myelosuppression from ETOH
--hepatomegaly on imaging, smooth capsule. Spleen normal in size
Plan:
-No role for steroids for alcoholic hepatitis as DF <32
-ETOH cessation strongly advised
-Will need outpatient repeat imaging to evaluate liver
-Avoid hepatotoxins, discussed no raw seafood.
--02/08/2025
--- LFTs continue to improve with alcohol cessation and good nutrition
-- Okay to be discharged from a GI/hepatology perspective
-- No role for steroids with a low DF
-- Please give him a lab slip to be done in 1 week with CBC, CMP, INR with results to be sent to Dr. Goddard
-- My office will call him on his cell to get him an appointment with us outpatient within 4 weeks cell number [phone],
Subjective
Subjective
Date of Service: February 08, 2025
Denies any symptoms. Go to go home
Objective
Data Reviewed
Laboratory Data:
Laboratory Results
02/08/25 07:10
02/08/25 07:10
Laboratory Results
PT 13.9 Sec (11.4-14.6) 02/07/25 14:08
INR 1.02 02/07/25 14:08
APTT 26.0 Sec (23.4-35.0) 02/05/25 05:35
Phosphorus 3.5 mg/dl (2.5-4.5) 02/08/25 07:10
Magnesium 1.6 mg/dl (1.6-2.3) 02/08/25 07:10
Total Bilirubin 2.1 mg/dl (0.2-1.3) H 02/08/25 07:10
AST 409 U/L (17-59) H 02/08/25 07:10
ALT 218 U/L (0-50) H 02/08/25 07:10
Alkaline Phosphatase 71 U/L (38-126) 02/08/25 07:10
Vital Signs and I&O:
Vital Signs
Temp Pulse Resp BP Pulse Ox
98.3 F 77 18 147/104 97
02/08/25 07:30 02/08/25 07:30 02/08/25 07:30 02/08/25 07:30 02/08/25 07:30
I&O
02/07/25 02/08/25 02/09/25
06:59 06:59 06:59
Intake Total 1320 / 1320
Output Total 200 / 200
Balance -200 / -200 1320 / 1320
Physical Exam
Physical Exam
HEENT: Anicteric (Mildly icteric)
Cardiology: Normal Sinus Rhythm
GI: Soft, Non Distended and Non Tender
Extremities: No Edema
Neuro: Non Focal
--- NOTE | 2025-02-08 10:07 | W.PN.HOSP.TC ---
Today's Communication/Plan
-
DC HOME
Assessment / Plan
Assessment / Plan
General: comfortable, no severe tremors
HEENT: Other (Dry MM. Neck supple.)
Respiratory: Clear; No Wheezes, Rales or Rhonchi
Cardiac: S1/S2 and Tachycardia; No Murmur
GI: Soft, Non Tender, Non Distended and Normal Bowel Sounds
Musculoskeletal: No Clubbing, No Cyanosis and No Edema
Neuro: AO x 3
A/P: Patient is a 59y M with no significant PMH who presents to ED complaining of hypertension and palpitations.
Acute Alcohol Withdrawal
Alcohol abuse
Anion Gap Metabolic Acidosis secondary to the above
- EtOH = 17 on admission
- Seizure precautions.
- Thiamine / folate / MVI replacement.
- IVF support can be stopped as tolerating po diet.
- Supportive care with antiemetics, PRN BZDs, etc.
- Follow electrolytes and replace as needed.
- Can hold off Phenobarb for now.
- Not interested in going to inpatient detox rehab.
- CM consult for outpatient resources. [facility] referral.
- Overall withdrawal symptoms significantly improved
Abnormal LFTs
Thrombocytopenia
- Secondary to alcohol use disorder as noted above.
- Check PT / PTT. DF score of 18. [place] alcoholic hepaitis score of 6. NA-MELD 15. Low score on scales indicating not responsive to steroids
- Significant bump in AST/ALT compared to yesterday. Pattern seems consistent with alcohol induced liver injury however unclear if secondary cause. Only new medication being losartan this admission.
- Hepatitis panel non reactive (A,B,C)
- Abdominal US Hepatomegaly. Increased heterogeneous hepatic echogenicity which is suspicious for cirrhosis. No abnormal focal hepatic lesion identified sonographically.
- Trend Platelets. Platelet uptrending
- Check GGT and direct bili. Triglyceride not significantly elevated. Albumin at 4.
- Patient with significant downtrend of LFTs. Will require outpatient close follow-up. Prescription provided with results faxed to GI.
- Discussed with GI okay for discharge.
Primary HTN elevated on admission likely due to severe alcohol withdrawal
Hypertension urgency
-states he was borderline high bp as outpatient
-started on losartan 50mg daily. May need to uptitrate if needed
Anion Gap Metabolic Acidosis secondary to alcoholic ketoacidosis
-resolved. stop bicarb.
Mild hypophosphatemia
-resolved.
-Encourage nutrition
Mild hyponatremia
-trend bmp for now
Hypokalemia
-replete/monitor PRN
DJD
- Left ankle pain progressive over the past several years - now fairly severe.
- History of dislocation in youth requiring surgery at that time.
- Pain control.
- Follow-up with Ortho as an outpatient.
DVT Prophylaxis: SCDs in setting for thrombocytopenia
Code Status: Full
PT eval-as for alcohol withdrawal and with low platelets.
More than 30 minutes spent in discharge including
Final examination of the patient
Summarizing hospital stay
Instructions for continuing care to all relevant caregivers
Preparation of discharge records, prescriptions, and referral forms
Total time spent (in minutes): 52
Anticipated Discharge: Today
Subjective/Interval History
-
Date of Service: February 08, 2025
Denies any tremors
States feeling significantly better
Tolerating diet
Objective Data
-
Labs:
Laboratory Results
02/08/25
07:10
WBC 5.1
Hgb 13.9
Hct 39.9
Plt Count 104 L D
Sodium 140
Potassium 3.5
Chloride 104
Carbon Dioxide 26
BUN 10
Creatinine 0.7
Glucose 111 H
Calcium 9.0
Total Bilirubin 2.1 H
AST 409 H
ALT 218 H
Alkaline Phosphatase 71
Vital Signs:
Vital Signs
Temp Pulse Resp BP Pulse Ox
98.3 F 77 18 147/104 97
02/08/25 07:30 02/08/25 07:30 02/08/25 07:30 02/08/25 07:30 02/08/25 07:30
I&O
02/07/25 02/08/25 02/09/25
06:59 06:59 06:59
Intake Total 1320 / 1320
Output Total 200 / 200
Balance -200 / -200 1320 / 1320
--- NOTE | 2025-02-08 10:12 | W.DCSUMMARY ---
Discharge Summary
Discharge Data
Date of Admission: 02/04/25
Date of Discharge: 02/08/25
-
Pending Results: No
Hospital Course
59-year-old male past medical history of alcohol abuse presented complaining of hypertension abd palpitation. Patient states of daily alcohol usage. Patient with increasing amount of alcohol usage at home. Patient was also found to have a
transaminitis and thrombocytopenia which was deemed secondary to alcohol abuse. Patient with low discriminatory factor/Madrey score and would not have benefited from prednisone. Patient underwent abdominal ultrasound with hepatomegaly. Patient
was started on alcohol withdrawal protocol. Patient withdrawal symptoms significantly improved. Patient was started on losartan for hypertension. Patient was also eval by gastroenterology. Patient platelets up trended. AST and ALT down trended.
Patient will require repeat blood work as outpatient. Patient anion gap acidosis also resolved. Electrolytes were repleted. Patient was counseled complete tobacco cessation. Patient did not want to go to inpatient detox rehab. [facility] was
offered outpatient resources. Patient be discharged home with outpatient GI and PCP follow-up
Discharge Plan
-
Patient Disposition: Home (Routine Discharge)
Discharge Diagnosis/Procedures: Acute alcohol withdrawals alcohol abuse
Acute metabolic acidosis
Normal cytopenia
Transaminitis
Primary hypertension
Hypokalemia
Mild hypophosphatemia
Mild hyponatremia
Condition: Fair
Diet: Regular
Activity: As tolerated
Driving Restrictions: No driving for 24 hours
Blood Work: CBC, CMP AND INR RESULTS FAXED TO Dr. Goddard
Instructions: High blood pressure in adults, Alcohol use disorder - Discharge instructions, Alcohol and your health
Referrals:
NONE,* [Family Provider] - in less than 1 week
Maricruz Silva PA-C [Specified Professional Personl] - 03/14/25 11:30 am
Prescriptions:
New
losartan 50 mg Tablet
50 mg PO DAILY Qty: 30 0RF
Continued
turmeric 400 mg Capsule
1 mg PO DAILY
Glucosamine Chondroitin 550-30-1 mg Capsule
1 cap PO DAILY
Discharge Orders:
Discharge Patient (As Directed); Ordered 02/08/25
Ordered By: Rajan Vogel
Discharge Date and Time
Print Language: MACANESE
[2025-02-08 11:17] VITALS: BP 151/101
--- NOTE | 2025-02-08 11:39 | CM ---
Chart reviewed home no needs when stable.
Plan; Home no needs. Patient met with [facility], declined treatment options.
== END 2025-02-08 15:22 | disposition home or self-care (01) | DRG 897 ==
LOC: 4 WEST ACU 23:59
PROVIDERS: Nurse Practitioner; Physician Assistant Medical; ADMITTING PHYSICIAN Hospitalist; ATTENDING PHYSICIAN Hospitalist; CONSULT PHYSICIAN Internal Medicine; EMERGENCY PHYSICIAN Emergency Medicine
DX: F10.139 Alcohol abuse with withdrawal, unspecified (principal); E87.21 Acute metabolic acidosis; E87.1 Hypo-osmolality and hyponatremia; D69.59 Other secondary thrombocytopenia; I16.0 Hypertensive urgency; I10 Essential (primary) hypertension; R74.01 Elevation of levels of liver transaminase levels; E87.6 Hypokalemia; R16.0 Hepatomegaly, not elsewhere classified; Y90.0 Blood alcohol level of less than 20 mg/100 ml
CPT/HCPCS: 76700; 80048; 80053; 80061; 80076; 81003; 81015; 82077; 82248; 82550; 82977; 83735; 84100; 84484; 85025; 85027; 85610; 85730; 86704; 86709; 86803; 87086; 87340; 93005; 96361; 96374; 97162; 99285

== ENCOUNTER → 2025-03-12 15:55 | Outpatient (REF) | payer BC, SELFPAY ==
[2025-03-12 16:30] LABS: % Basophils 0.9 % (0-2); % Eosinophils 0.8 % (0-6); % Immature Granulocytes 0.3 % (0-0.5); % Monocytes 11.7 % (1.7-9.3); % Neutrophils 47.3 % (42.2-75.2); Absolute Basophils 0.1 10^3/uL (0-0.2); Absolute Eosinophils 0.1 10^3/uL (0-0.7); Absolute Lymphocytes 2.5 10^3/uL (1.2-3.4); Absolute Monocytes 0.8 10^3/uL (0.1-0.6); Hematocrit 43.8 % (39.0-52.0); Hemoglobin 15.5 g/dL (13.0-18.0); Mean Corp Hgb Conc. 35.4 g/dL (33.0-37.0); Mean Corpuscular Hgb 33.3 pg (27.0-31.0); Mean Platelet Volume 11.8 fL (7.4-10.4); Nucleated Red Blood Cells % 0 % (-); Platelet Count 193 10^3/uL (130-400); Red Blood Cell Count 4.66 10^6/uL (4.70-6.10); Red Cell Dist. Width 14.2 % (11.5-14.5); White Blood Cell Count 6.4 10^3/uL (4.8-10.8)
[2025-03-12 16:34] LABS: INR 1.03; PT 13.8 Sec (11.4-14.6)
[2025-03-12 17:00] LABS: ALT (SGPT) 57 U/L (0-50); AST (SGOT) 34 U/L (17-59); Albumin 4.7 g/dl (3.5-5.0); Alkaline Phosphatase 62 U/L (38-126); Blood Urea Nitrogen 9 mg/dl (9-20); Calcium 9.8 mg/dl (8.4-10.2); Carbon Dioxide 24 mmol/L (22-30); Chloride 105 mmol/L (98-107); Glucose 91 mg/dl (70-99); Potassium 4.5 mmol/L (3.5-5.1); Sodium 141 mmol/L (135-145); Total Bilirubin 2.4 mg/dl (0.2-1.3); Total Protein 7.3 g/dl (6.3-8.2); eGFR > 60.00
[2025-03-12 17:16] LABS: PSA, Total - Screen 1.66 ng/ml (0.0-4.0)
== END ==
LOC: REG 15:55
PROVIDERS: ATTENDING PHYSICIAN Hospitalist; FAMILY PHYSICIAN Internal Medicine Geriatric Medicine
DX: Z76.89 Persons encountering health services in other specified circumstances (principal); I10 Essential (primary) hypertension; E78.2 Mixed hyperlipidemia; E55.9 Vitamin D deficiency, unspecified; Z13.31 Encounter for screening for depression; Z12.5 Encounter for screening for malignant neoplasm of prostate; R74.01 Elevation of levels of liver transaminase levels
CPT/HCPCS: 36415; 80053; 85025; 85610; G0103